=== PATIENT | female | born 1970 | race Caucasian/White ===

== ENCOUNTER 2017-07-03 13:10 | Emergency (ER) | payer OTHER ==
[~2017-07-03] VITALS: Ht 162.6 cm; Wt 76.4 kg
[~2017-07-03 13:10] MED LIST: IBUP-2213 PO; KEF500 PO
[2017-07-03 13:30] VITALS: BP 129/89
--- NOTE | 2017-07-03 13:37 | NUR ---
PATIENT TO ER BED 10
--- NOTE | 2017-07-03 13:53 | NUR ---
DR. CARTAGENA BEDSIDE EVALUATING PATIENT
[2017-07-03] MEDS ORDERED: MORPHINE SULFATE 4 MG/ML SYR IVP ONE ×2 (13:55→16:20)
[2017-07-03] MEDS ORDERED: NACL 0.9% 1,000 ML IV ONE (13:55)
--- NOTE | 2017-07-03 14:18 | NUR ---
ASSUMED CARE, PT INNAD. RESP EVEN AND UNLABORED C/O NON RADIATING INTERMITTENT SHARP EPIGASTRIC PAIN 03/22 SINCE YESTERDAY; DENIES N/V/D DENIES FEVERS/DYSURIA HX; CROHN'S DZ A CHILDE RX; DENIES
--- NOTE | 2017-07-03 14:24 | NUR ---
PT MEDICATED, REPORTS FEELING BETTER, PAIN DECREASED TO 3/10 AT THIS TIME. NO NAUSEA. VSS.
[2017-07-03 14:25] LABS: BASOPHILS # (AUTO) 0.1 K/uL (0.00-0.22); BASOPHILS % (AUTO) 1.3 % (0.0-2.0); EOSINOPHILS # (AUTO) 0.5 K/uL (0-0.4); EOSINOPHILS % (AUTO) 5.7 % (0.0-4.0); HEMATOCRIT 37.7 % (36-48); HEMOGLOBIN 12.4 g/dL (12.0-16.0); LYMPHOCYTES # (AUTO) 2.1 K/uL (2.5-16.5); LYMPHOCYTES % (AUTO) 23.7 % (20.5-51.1); MEAN CORPUSCULAR HEMOGLOBIN 28 pg (27-31); MEAN CORPUSCULAR HGB CONC 33 g/dL (33-37); MEAN CORPUSCULAR VOLUME 85 fL (80-94); MONOCYTES # (AUTO) 0.8 K/uL (0.8-1.0); MONOCYTES % (AUTO) 8.8 % (1.7-9.3); NEUTROPHILS # (AUTO) 5.5 K/uL (1.8-7.7); NEUTROPHILS % (AUTO) 60.5 % (42.2-75.2); PLATELET COUNT (AUTO) 234 K/uL (140-450); RED BLOOD CELL COUNT(AUTO) 4.46 MIL/uL (4.20-5.40); RED CELL DISTRIBUTION WIDTH 13.2 % (11.6-13.7)
[2017-07-03 14:27] LABS: APPEARANCE,URINE CLEAR (CLEAR); BILIRUBIN,URINE NEGATIVE (NEGATIVE); BLOOD, URINE NEGATIVE (NEGATIVE); COLOR,URINE YELLOW (YELLOW); LEUKOCYTE ESTERASE ,URINE NEGATIVE (NEGATIVE); NITRITE, URINE NEGATIVE (NEGATIVE); PH,URINE 7.5 (5.0-9.0); UGLUCOSE NEGATIVE (NEGATIVE)
[2017-07-03 14:39] LABS: ANION GAP 8.8 (8-16); CARBON DIOXIDE 27.8 mmol/L (21-32); CREATININE 0.8 mg/dL (0.6-1.3); POTASSIUM 3.6 mmol/L (3.5-5.1)
[2017-07-03 14:47] LABS: ALBUMIN 3.3 g/dL (3.4-5.0); TOTAL BILIRUBIN 0.6 mg/dL (0.0-1.0)
[2017-07-03] MEDS ORDERED: KETOROLAC 30 MG/ML VIAL IVP ONE (16:30)
--- NOTE | 2017-07-03 16:30 | NUR ---
PT CRYING, REPORTS HEADACHE, REQUESTING PAINMEDS. DR CARTAGENA INFORMED, PT REFUSING MORPHINE, STATES IT GAVE HER A HEADCAHE AFTERWRADS.
--- NOTE | 2017-07-03 17:57 | NUR ---
US AT BEDSIDE, PT REORTS RELIEF AFTER TORADOL IV
[2017-07-03 18:18] VITALS: BP 129/79
== END 2017-07-03 18:16 | disposition home or self-care (01) ==
LOC: MED 13:10
DX: R10.13 Epigastric pain (principal); Z79.899 Other long term (current) drug therapy
CPT/HCPCS: 36415; 74176; 76705; 80053; 81003; 81025; 83690; 85025; 96361; 96374; 96375; 99285; J1885; J2270; J7030; Q0092